=== PATIENT | male | born 1985 | race Caucasian/White ===

== ENCOUNTER 2023-07-18 11:19 | Emergency (ER) | payer BC ==
[2023-07-18] MEDS ORDERED: Sodium Chloride 0.9% 1,000 ML IV STA (11:52)
[2023-07-18] MEDS ORDERED: Sodium Chloride 0.9% 10 ML Syringe FLUSH PRN (11:52)
[2023-07-18] MEDS ORDERED: Ondansetron 4 MG/2 ML SDV IVPUSH ONE (11:53)
[2023-07-18 12:06] LABS: BASOPHILS ABSOLUTE AUTO 0.07 K/uL (0.00-0.10); BASOPHILS PERCENT AUTO 0.9 % (0.1-1.3); EOSINOPHILS ABSOLUTE AUTO 0.11 K/uL (0.00-0.40); EOSINOPHILS PERCENT AUTO 1.4 % (0.0-5.4); HEMATOCRIT 47.9 % (38.4-49.7); HEMOGLOBIN 16.7 g/dL (12.9-16.9); IMMATURE GRAN PERCENT AUTO 0.1 % (0.0-0.7); LYMPHOCYTES ABSOLUTE AUTO 3.79 K/uL (0.8-3.3); LYMPHOCYTES PERCENT AUTO 47.5 % (11.4-47.7); MEAN CORPUSCULAR HEMOGLOBIN 30.9 pg (31.6-35.5); MEAN CORPUSCULAR HGB CONC 34.9 g/dL (31.6-35.5); MEAN CORPUSCULAR VOLUME 88.5 fL (81.4-99.0); MONOCYTES ABSOLUTE AUTO 0.72 K/uL (0.20-0.90); NEUTROPHILS ABSOLUTE AUTO 3.28 K/uL (1.0-7.6); NEUTROPHILS PERCENT AUTO 41.1 % (40.0-78.1); PLATELET COUNT,PLT 491 K/uL (130-375); RED BLOOD CELL COUNT 5.41 M/uL (4.14-5.76)
[2023-07-18 12:08] LABS: IMMATURE GRAN ABSOLUTE AUTO 0.01 K/uL (0.00-0.23)
[2023-07-18] MEDS ORDERED: Iopamidol 612 MG/ML 100 ML Bottle IV SCH (12:15)
[2023-07-18] MEDS ORDERED: Sodium Chloride 0.9% 50 ML IV SCH (12:15)
[2023-07-18 12:28] LABS: A/G RATIO 0.9 (1.2-2.2); ALANINE AMINOTRANSFERASE,ALT 45 U/L (12-78); ALBUMIN 4.1 g/dL (3.4-5.0); ALKALINE PHOSPHATASE 84 U/L (46-116); ASPARTATE AMNIOTRANSFERASE,AST 28 U/L (15-37); BILIRUBIN TOTAL 0.5 mg/dL (0.2-1.0); BLOOD UREA NITROGEN,BUN 10 mg/dL (7-18); CALCIUM 10.2 mg/dL (8.5-10.1); CARBON DIOXIDE,CO2 26 mmol/L (21-32); CHLORIDE,CL 98 mmol/L (100-108); CREATININE 0.9 mg/dL (0.8-1.3); ESTIMATED GFR 114 mL/min (>60); GLUCOSE RANDOM 94 mg/dL (74-106); PROTEIN TOTAL,TP 8.6 g/dL (6.4-8.2); SODIUM,NA 137 mmol/L (140-148)
[2023-07-18 12:29] LABS: TROPONIN I HIGH SENSITIVITY < 4.0 pg/mL (<=60.3)
[2023-07-18 12:50] LABS: APPEARANCE,URINE CLEAR (CLEAR); BILIRUBIN,URINE NEGATIVE (NEGATIVE); COLOR,URINE YELLOW (YELLOW); GLUCOSE,URINE NEGATIVE (NEGATIVE); KETONES,URINE NEGATIVE (NEGATIVE); LEUKOCYTE ESTERASE,URINE NEGATIVE (NEGATIVE); NITRITE,URINE NEGATIVE (NEGATIVE); OCCULT BLOOD,URINE NEGATIVE (NEGATIVE); PROTEIN,URINE NEGATIVE (NEGATIVE); UROBILINOGEN,URINE 0.2 EU/dL (0.2-1.0)
[2023-07-18 13:08] LABS: AMORPHOUS SEDIMENT,URINE NOT SEEN; BACTERIA,URINE RARE; EPITHELIAL CELLS,URINE NOT SEEN; MUCUS,URINE NOT SEEN; RBC,URINE 0-5 (0-5); WBC,URINE 0-5 (0-5)
== END 2023-07-18 14:18 | disposition home or self-care (01) ==
LOC: JP.ED 11:19
DX: I88.0 Nonspecific mesenteric lymphadenitis (principal)
CPT/HCPCS: 36415; 74177; 80053; 81001; 83605; 83690; 84484; 85025; 96374; 99284; 99284-25; J2405; J3490; J7030; Q9967

== ENCOUNTER 2023-11-29 09:04 | Emergency (ER) | payer BC | END 2023-11-29 09:53 | disposition home or self-care (01) | LOC: JP.ED 09:04 | DX: B02.8 Zoster with other complications (principal); Z86.19 Personal history of other infectious and parasitic diseases | CPT/HCPCS: 99283 ==

== ENCOUNTER 2024-02-09 18:24 | Emergency (ER) | payer BC | END 2024-02-09 20:00 | disposition home or self-care (01) | LOC: JP.ED 18:24 | DX: T53.5X1A Toxic effect of chlorofluorocarbons, accidental (unintentional), initial encounter (principal) | CPT/HCPCS: 99283 ==

== ENCOUNTER 2025-04-17 19:11 | Emergency (ER) | payer BC | END 2025-04-17 20:45 | disposition home or self-care (01) | LOC: JP.ED 19:11 | DX: R00.2 Palpitations (principal) | CPT/HCPCS: 99283; 99284 ==

== ENCOUNTER 2025-04-18 11:36 | Emergency (ER) | payer BC ==
[2025-04-18 13:23] LABS: T4 FREE 0.98 ng/dL (0.76-1.46); TSH ULTRASENSITIVE 1.931 uIU/mL (0.358-3.740)
[2025-04-18 13:34] LABS: BASOPHILS ABSOLUTE AUTO 0.09 K/uL (0.00-0.10); BASOPHILS PERCENT AUTO 0.9 % (0.1-1.3); EOSINOPHILS ABSOLUTE AUTO 0.10 K/uL (0.00-0.40); EOSINOPHILS PERCENT AUTO 1.0 % (0.0-5.4); IMMATURE GRAN PERCENT AUTO 0.2 % (0.0-0.7); LYMPHOCYTES ABSOLUTE AUTO 3.93 K/uL (0.8-3.3); LYMPHOCYTES PERCENT AUTO 38.2 % (11.4-47.7); MONOCYTES ABSOLUTE AUTO 0.79 K/uL (0.20-0.90); MONOCYTES PERCENT AUTO 7.7 % (3.3-12.6); NEUTROPHILS ABSOLUTE AUTO 5.36 K/uL (1.0-7.6); NEUTROPHILS PERCENT AUTO 52.0 % (40.0-78.1); PLATELET COUNT,PLT 434 K/uL (130-375); RED BLOOD CELL COUNT 4.88 M/uL (4.14-5.76); WHITE BLOOD CELL COUNT,WBC 10.3 K/uL (3.2-11.0)
[2025-04-18 13:34] LABS: TROPONIN I HIGH SENSITIVITY < 4.0 pg/mL (<=60.3)
[2025-04-18 13:47] LABS: IMMATURE GRAN ABSOLUTE AUTO 0.02 K/uL (0.00-0.23)
[2025-04-18 13:53] LABS: A/G RATIO 1.0 (1.2-2.2); ALANINE AMINOTRANSFERASE,ALT 40 U/L (12-78); ASPARTATE AMNIOTRANSFERASE,AST 22 U/L (15-37); BILIRUBIN TOTAL 0.3 mg/dL (0.2-1.0); BLOOD UREA NITROGEN,BUN 15 mg/dL (7-18); CARBON DIOXIDE,CO2 26 mmol/L (21-32); CHLORIDE,CL 102 mmol/L (100-108); CREATININE 0.8 mg/dL (0.8-1.3); EST CRCL DRUG DOSING (CG) 117.05 mL/min; ESTIMATED GFR 116 mL/min (>60); GLUCOSE RANDOM 100 mg/dL (74-106); POTASSIUM,K 4.2 mmol/L (3.6-5.2); PROTEIN TOTAL,TP 8.5 g/dL (6.4-8.2); SODIUM,NA 139 mmol/L (140-148)
== END 2025-04-18 14:24 | disposition home or self-care (01) ==
LOC: JP.ED 11:36
DX: R00.2 Palpitations (principal)
CPT/HCPCS: 36415; 80053; 84439; 84443; 84484; 85025; 93246; 99283; 99284

== ENCOUNTER 2025-05-03 23:12 | Emergency (ER) | payer BC ==
[2025-05-04 00:12] LABS: PLATELET COUNT,PLT 462 K/uL (130-375); RED BLOOD CELL COUNT 4.80 M/uL (4.14-5.76); WHITE BLOOD CELL COUNT,WBC 10.2 K/uL (3.2-11.0)
[2025-05-04 00:32] LABS: BAND ABSOLUTE MAN 0.20 K/uL; BAND PERCENT MAN 2 % (5-11); LYMPHOCYTES ABSOLUTE MAN 5.20 K/uL (0.8-3.3); LYMPHOCYTES PERCENT MAN 51 % (24-44); MONOCYTES ABSOLUTE MAN 0.82 K/uL (0.20-0.90); MONOCYTES PERCENT MAN 8 % (2-6); NEUTROPHILS ABSOLUTE MAN 3.98 K/uL (1.0-7.6); SEG NEUTROPHILS PERCENT MAN 39 % (36-66)
[2025-05-04 00:34] LABS: A/G RATIO 0.9 (1.2-2.2); ALANINE AMINOTRANSFERASE,ALT 32 U/L (12-78); ASPARTATE AMNIOTRANSFERASE,AST 18 U/L (15-37); BILIRUBIN TOTAL 0.3 mg/dL (0.2-1.0); BLOOD UREA NITROGEN,BUN 14 mg/dL (7-18); CARBON DIOXIDE,CO2 27 mmol/L (21-32); CHLORIDE,CL 102 mmol/L (100-108); CREATININE 0.7 mg/dL (0.8-1.3); ESTIMATED GFR 121 mL/min (>60); GLUCOSE RANDOM 107 mg/dL (74-106); POTASSIUM,K 3.8 mmol/L (3.6-5.2); PROTEIN TOTAL,TP 8.8 g/dL (6.4-8.2); SODIUM,NA 140 mmol/L (140-148); TROPONIN I HIGH SENSITIVITY 5.4 pg/mL (<=60.3)
[2025-05-04 00:41] LABS: BICARBONATE,ARTERIAL 22.5 mmol/L (22.0-26.0); O2 SATURATION ARTERIAL 98.5 % (95.0-98.0); OXYHEMOGLOBIN 96.5 %; PCO2 ARTERIAL 33.5 mmHg (35.0-42.0); PO2 ARTERIAL 107.0 mmHg (75.0-100.0); TOTAL HEMOGLOBIN 15.8 g/dL (13.5-18.0)
[2025-05-04 00:42] LABS: BASE EXCESS ARTERIAL -0.4 mm/L
[2025-05-04 00:48] LABS: LACTIC ACID 1.3 mmol/L (0.4-2.0)
== END 2025-05-04 02:00 | disposition home or self-care (01) ==
LOC: JP.ED 23:12
DX: J40 Bronchitis, not specified as acute or chronic (principal); J32.9 Chronic sinusitis, unspecified
CPT/HCPCS: 36415; 36600; 71046; 71046-26; 80053; 82803; 83605; 84484; 85025; 85379; 86140; 99285; U0002

== ENCOUNTER 2025-05-05 15:48 | Emergency (ER) | payer BC | END 2025-05-05 17:13 | disposition home or self-care (01) | LOC: JP.ED 15:48 | DX: R00.2 Palpitations (principal); Z79.899 Other long term (current) drug therapy; Z79.51 Long term (current) use of inhaled steroids | CPT/HCPCS: 93010; 99284 ==